=== PATIENT | male | born 1970 | race Two or more races ===

== ENCOUNTER 2020-03-06 17:12 | Emergency (ER) | payer OTHER, SELFPAY ==
--- NOTE | 2020-03-06 18:05 | ED_ITS ---
HPI - Skin/Abscess/Foreign Bdy General Chief complaint: Skin/Abscess/Foreign Body <FUAD Rubio - Last Filed: 03/06/20 19:41> Stated complaint: TOE NAIL PROBLEM <FUAD Rubio - Last Filed: 03/06/20 19:41> Time Seen by Provider: 03/06/20 18:05 <FUAD Rubio - Last Filed: 03/06/20 19:41> Source: patient <FUAD Rubio - Last Filed: 03/06/20 19:41> Mode of arrival: ambulatory <FUAD Rubio - Last Filed: 03/06/20 19:41> Limitations: no limitations <FUAD Rubio - Last Filed: 03/06/20 19:41> History of Present Illness HPI narrative: 50 y/o male presenting with bilateral great toe pain due to ingrown townails. He has had this problem before and required excision in the ED. He attempted to do this at home however the pain was too severe. He was unable to wait to go to his doctor due to severe pain. Difficulty walking and wearing shoes. Mild redness but no drainage, no fevers. <FUAD Rubio - Last Filed: 03/06/20 19:41> MD complaint: lesion <FUAD Rubio - Last Filed: 03/06/20 19:41> Onset (ago): day(s) (5) <FUAD Rubio - Last Filed: 03/06/20 19:41> Tetanus up to date: yes <FUAD Rubio - Last Filed: 03/06/20 19:41> Location: L foot and R foot <FUAD Rubio Last Filed: 03/06/20 19:41> Severity: similar to previous episodes <FUAD Rubio - Last Filed: 03/06/20 19:41> Severity scale (1-10): 8 <FUAD Rubio - Last Filed: 03/06/20 19:41> Quality: aching and sharp <FUAD Rubio Last Filed: 03/06/20 19:41> Pain Consistency: constant <FUAD Rubio - Last Filed: 03/06/20 19:41> Relieving factors: none <FUAD Rubio Last Filed: 03/06/20 19:41> Exacerbating factors: palpation <FUAD Rubio Last Filed: 03/06/20 19:41> Context: none <FUAD Rubio Last Filed: 03/06/20 19:41> Associated symptoms: denies other symptoms <FUAD Rubio Last Filed: 03/06/20 19:41> Treatments prior to arrival: attempted to drain pus at home <FUAD Rubio Last Filed: 03/06/20 19:41> Related Data Home medications: Previous Rx's Medication Instructions Recorded cephalexin [Keflex] 500 mg PO QID 7 Days #28 cap 03/06/20 <FUAD Rubio Last Filed: 03/06/20 19:41> Allergies/Adverse reactions: Allergies Allergy/AdvReac Type Severity Reaction Status Date / Time Compazine Allergy Unknown stiff Uncoded 12/03/19 00:00 muscles From COMPAZINE Allergy Unknown UNKNOWN Uncoded 02/19/20 15:25 <FUAD Rubio Last Filed: 03/06/20 19:41> Review of Systems Review of Systems: Constitutional: No Fever, No Chills ENT/Mouth: No sore throat, No Rhinorrhea, No Swallowing Difficulty Eyes: No Eye Pain, No Swelling, No Redness Cardiovascular: No Chest Pain or SOB, No Orthopnea or LE Edema Respiratory: No Cough, No Sputum, No Wheezing Gastrointestinal: No Nausea, No Vomiting, No Diarrhea, No abdominal Pain, No Hematochezia, No Melena Genitourinary: No Dysuria, No Urinary Frequency, No Hematuria Musculoskeletal: positive joint pain, No Myalgias Skin: positive Skin Lesions, No rash Neuro: No Weakness, No Numbness, No Dizziness, No Headache Psych: No Anxiety/Panic, No Depression Heme/Lymph: No Bruising, No Lymphadenopathy Endocrine: No Polyuria, No Polydipsia All other 10 point ROS are negative. <FUAD Rubio Last Filed: 03/06/20 19:41> [facility] Past Medical History Attestation statement: The following information was validated with the patient. <FUAD Rubio - Last Filed: 03/06/20 19:41> Medical History: Medical History (Updated 03/07/20 @ 00:00 by Giovana Rader) HTN (hypertension) <FUAD Rubio - Last Filed: 03/06/20 19:41> Social History Social History: Social History Alcohol intake: never Smoking Status: Current every day smoker Use of substances other than those prescribed or required for medical reasons: No Advance Directives: No Advance Directives Information Provided: Yes <FUAD Rubio - Last Filed: 03/06/20 19:41> Physical Exam Vital Signs and I&O and Narrative: Vital Signs and I&O: Vital Signs Temp 98.8 F 03/06/20 18:24 Pulse 70 03/06/20 18:24 Resp 16 03/06/20 18:24 BP 136/86 03/06/20 18:24 Pulse Ox 97 03/06/20 18:24 Intake & Output 03/06/20 03/06/20 03/07/20 06:59 18:59 06:59 Weight 95.254 kg Body Mass Index 29.2 Appearance: Alert. Oriented X3. No acute distress. Eyes: Pupils equal, round and reactive to light. Neck: Normal inspection. Neck supple. CVS: Normal heart rate and rhythm. Pulses normal. Respiratory: No respiratory distress. Abdomen: appears normal to inspection Skin: Skin warm and dry. Normal skin color. Normal skin turgor. No rashes. Extremities: bilateral great toes have areas of erythema and tenderness of the lateral nail bed. <3 sec cap refill. no drainage. Neuro: Oriented X 3. No motor deficit. No sensory deficit. <FUAD Rubio - Last Filed: 03/06/20 19:41> Vital Signs and I&O: Vital Signs Temp 98.8 F 03/06/20 18:24 Pulse 70 03/06/20 18:24 Resp 16 03/06/20 18:24 BP 136/86 03/06/20 18:24 Pulse Ox 97 03/06/20 18:24 Intake & Output 03/06/20 03/06/20 03/07/20 06:59 18:59 06:59 Weight 95.254 kg Body Mass Index 29.2 <Julio César Yin DO - Last Filed: 03/07/20 01:18> Course Course Hospital Course: bilateral ingrown toenails, see procedure note <FUAD Rubio - Last Filed: 03/06/20 19:41> Procedures Procedure Narrative Procedure Narrative: Bilateral great toes were cleansed with betadine in sterile fashion. 2% local lidocaine was injected into lateral nail beds. #11 blade was used to incise the lateral nail bed. Forceps used to excise ingrown toesnails x4, both medial and lateral areas. Cleansed with saline and peroxide. Patient tolerated well. He reports instant relief of pain and pressure. No complications. <FUAD Rubio - Last Filed: 03/06/20 19:41> MDM - Skin/Abscess/Foreign Bdy Differential Diagnosis Differential diagnosis: Likely abscess of skin or subcutaneous tissue, cellulitis, insect bites and contact dermatitis <FUAD Rubio - Last Filed: 03/06/20 19:41> Discharge Plan Discharge Clinical Impression: Ingrown right big toenail, Ingrown left big toenail <FUAD Rubio - Last Filed: 03/06/20 19:41> Patient Disposition: Home, Self-Care <FUAD Rubio - Last Filed: 03/06/20 19:41> Instructions: Ingrown Nail (ED), Partial Nail Avulsion for Ingrown Nail (DC) <UFAD Rubio - Last Filed: 03/06/20 19:41> Additional Instructions: Soak your feet in warm soapy water with Epsom salts 2-3 times per day. <FUAD Rubio - Last Filed: 03/06/20 19:41> Prescriptions: New cephalexin [Keflex] 500 mg capsule 500 mg PO QID 7 Days Qty: 28 RF: 0 <FUAD Rubio Last Filed: 03/06/20 19:41> Referrals: Zackary Murphy [Physician] - 2 days <FUAD Rubio Last Filed: 03/06/20 19:41> Interventions: ED Discharge Assessment Last Done: 03/06/20 20:12 <FUAD Rubio Last Filed: 03/06/20 19:41> Discharge Date/Time: 03/06/20 20:12 <FUAD Rubio - Last Filed: 03/06/20 19:41>
[2020-03-06 18:06] VITALS: BP 136/86; PULSE 70; TEMP 37.1
[2020-03-06 18:24] VITALS: BP 136/86; PULSE 70; RESP 16; TEMP 37.1; O2SAT 97; BMI 29.2
[2020-03-06] MEDS: cephALEXin 500 MG CAPSULE PO (18:58)
[2020-03-06] MEDS: Lidocaine HCl 2 % MPF 5 ML VIAL INFILTRATI (18:58)
== END 2020-03-06 20:12 | disposition home or self-care (01) ==
PROVIDERS: Emergency Provider Emergency Medicine; PCP Internal Medicine
DX: L60.0 Ingrowing nail (principal)
CPT/HCPCS: 11730; 11732; 99284

== ENCOUNTER 2020-08-21 10:29 | Outpatient (REF) | payer OTHER, SELFPAY ==
[2020-08-21 11:47] LABS: Glucose Urine UA NEG (NEG); Leukocyte Esterase Urine 1+ (NEG); Nitrite Urine NEG (NEG); PH 6.5 (5.0-8.0); Specific Gravity - Urine 1.025 (1.005-1.025); UACC Culture Trigger YES; Urine Blood NEG (NEG); Urine Ketones NEG (NEG); Urine Protein NEG (NEG-TRACE)
[2020-08-21 11:56] LABS: Appearance Urine HAZY; Color Urine YELLOW
[2020-08-21 12:03] LABS: Mucus Urine 3+ /LPF; RBC Urine 0 /HPF (0); WBC Urine 30-49 /HPF (0-4)
[2020-08-21 12:19] LABS: Hematocrit 41.5 % (42-52); Hemoglobin 12.8 g/dl (14.0-18.0); Mean Corpuscular HGB Conc 30.8 g/dl (31.0-36.0); Mean Corpuscular Hemoglobin 25.4 pg (27.0-33.0); Mean Corpuscular Volume 82.5 fL (80-98); Mean Platelet Volume 9.5 fL (9.4-12.4); Platelet Count 263 X10*3/uL (160-400); Red Blood Count 5.03 X10*6/uL (4.60-5.80); Red Cell Distribution Width 12.7 % (11.0-16.0); White Blood Count 8.8 X10*3/uL (4.8-10.8)
[2020-08-21 12:27] LABS: D Dimer 311 NG/ML
[2020-08-21 12:49] LABS: Alanine Aminotransferase 16 U/L (0-40); Alkaline Phosphatase 79 U/L (39-117); Anion Gap 11 (12-20); Aspartate Amino Transferase 17 U/L (5-37); Bilirubin Total 0.2 mg/dL (0.0-1.0); Blood Urea Nitrogen 13 mg/dL (9-16); Calcium 8.9 mg/dL (8.4-10.2); Carbon Dioxide 30 mmol/L (22-29); Chloride 103 mmol/L (96-108); Estimated Glomerular Filt Rate > 60; Glucose Random 92 mg/dL (60-115); Potassium 4.2 mmol/L (3.3-5.1); Sodium 140 mmol/L (135-145); Total Protein 7.4 g/dL (6.5-8.0)
[2020-08-21 12:51] LABS: Band Neutrophils Percent 7 % (3-5); Eosinophils Absolute Manual 0.3 X10*3/UL (0.0-0.8); Eosinophils Percent Manual 3 % (0-4); Lymphocytes Absolute Manual 1.9 X10*3/uL (0.6-4.8); Lymphocytes Percent Manual 22 % (20-40); Monocytes Absolute Manual 0.4 X10*3/uL (0.0-1.2); Monocytes Percent Manual 5 % (2-11); Neutrophils Absolute Manual 6.2 X10*3/uL (2.2-7.9); Neutrophils Percent Manual 63 % (45-73); Nucleated Red Blood Cells 1 /100WBC (0-0)
[2020-08-21 12:53] LABS: Platelet Estimate NORMAL (NORMAL); RBC Morphology NORMAL
[2020-08-21 12:54] LABS: Platelet Morphology Comment NORM
[2020-08-21 13:11] LABS: Prostate Specific Antigen Scr 2.17 ng/mL (<0.05-4.0)
== END 2020-08-21 10:30 | disposition home or self-care (01) ==
LOC: HO.LAB 10:29
PROVIDERS: PCP Internal Medicine; Visit Provider Internal Medicine
DX: R07.89 Other chest pain (principal); R30.0 Dysuria; I10 Essential (primary) hypertension; Z12.5 Encounter for screening for malignant neoplasm of prostate
CPT/HCPCS: 36415; 80053; 81001; 81003; 82550; 84153; 85007; 85025; 85027; 85060; 85379; 86140; 87086

== ENCOUNTER 2020-08-23 14:55 | Outpatient (REF) | payer OTHER, SELFPAY ==
--- NOTE | ~2020-08-23 | XR_ITS ---
EXAMINATION: XR CHEST CLINICAL INFORMATION: Left chest wall pain COMPARISON: Previous chest x-ray June 2019 TECHNIQUE: 2 views of the chest were obtained. FINDINGS: The cardiac and mediastinal contours are stable. There is an 10 mm nodule at the left lung base seen on the PA view. The lungs are otherwise clear. There is no pleural effusion or pneumothorax. There are mild degenerative changes of the spine. XR/XR chest 2V IMPRESSION: 10 mm nodule at the left lung base. Follow-up chest x-ray with nipple markers recommended.
== END 2020-08-23 14:56 | disposition home or self-care (01) ==
LOC: HO.XRAY 14:55
PROVIDERS: PCP Internal Medicine; Visit Provider Internal Medicine
DX: R07.89 Other chest pain (principal); I10 Essential (primary) hypertension; R30.0 Dysuria
CPT/HCPCS: 71046

== ENCOUNTER 2020-08-26 21:48 | Emergency (ER) | payer OTHER, SELFPAY ==
--- NOTE | ~2020-08-26 | US_ITS ---
EXAMINATION: US SCROTUM CLINICAL INFORMATION: Left testicular pain. COMPARISON: None TECHNIQUE: A sonogram of the scrotum was performed assessing biggs-scale appearance and color Doppler flow. Spectral Doppler analysis of the arterial and venous flow were performed in the testes bilaterally. FINDINGS: RIGHT: Right testicle measures 4.9 x 2.5 x 3.3 cm, volume 21 mL. No focal testicular parenchymal lesions are visualized. Spectral Doppler analysis of the arterial and venous flow is normal in the right testis. Right epididymal head is normal in size. A small 3 to 4 mm cyst is noted in the head of the right epididymis. No right hydrocele or varicocele is seen. Right epididymal Doppler flow is normal. LEFT: Left testicle measures 4.5 x 3.0 x 2.9 cm, volume 20 mL. No focal testicular parenchymal lesions are visualized. Spectral Doppler analysis of the arterial and venous flow is normal in the left testis. Left epididymal head is normal in size. 2 small epididymal head cysts are noted measuring about 3 to 4 mm in size. A small left hydrocele is present but no varicocele is seen. Left epididymal Doppler flow is normal. US/US scrotum doppler IMPRESSION: 1. Testes appear normal. 2. Bilateral small epididymal head cysts 3. Small left-sided hydrocele
--- NOTE | ~2020-08-26 | US_ITS ---
EXAMINATION: US SCROTUM CLINICAL INFORMATION: Left testicular pain. COMPARISON: None TECHNIQUE: A sonogram of the scrotum was performed assessing biggs-scale appearance and color Doppler flow. Spectral Doppler analysis of the arterial and venous flow were performed in the testes bilaterally. FINDINGS: RIGHT: Right testicle measures 4.9 x 2.5 x 3.3 cm, volume 21 mL. No focal testicular parenchymal lesions are visualized. Spectral Doppler analysis of the arterial and venous flow is normal in the right testis. Right epididymal head is normal in size. A small 3 to 4 mm cyst is noted in the head of the right epididymis. No right hydrocele or varicocele is seen. Right epididymal Doppler flow is normal. LEFT: Left testicle measures 4.5 x 3.0 x 2.9 cm, volume 20 mL. No focal testicular parenchymal lesions are visualized. Spectral Doppler analysis of the arterial and venous flow is normal in the left testis. Left epididymal head is normal in size. 2 small epididymal head cysts are noted measuring about 3 to 4 mm in size. A small left hydrocele is present but no varicocele is seen. Left epididymal Doppler flow is normal. US/US scrotum IMPRESSION: 1. Testes appear normal. 2. Bilateral small epididymal head cysts 3. Small left-sided hydrocele
[2020-08-26 22:19] VITALS: BP 145/84; PULSE 80; RESP 18; TEMP 36.8; O2SAT 96; BMI 29.2
--- NOTE | 2020-08-26 22:26 | ED.MALEGU ---
HPI - Male Genitourinary General Chief complaint: Urogenital-Male Stated complaint: Groin pain Time Seen by Provider: 08/26/20 22:15 Source: patient Mode of arrival: ambulatory Limitations: no limitations History of Present Illness HPI Narrative: Patient with no history of STD in the past noticed pain in the left testicle with swelling for last 3 days got worse today no trauma no history of STD no penile discharge no abdominal pain no nausea no vomiting no fever Complaint: testicle pain and testicle swelling Onset (ago): day(s) (3) Duration: constant Location: left testicle Severity: moderate Quality: stabbing Relieving factors: none Exacerbating factors: none Associated symptoms: Reports denies other symptoms Related Data Previous Rx's Medication Instructions Recorded cephalexin [Keflex] 500 mg PO QID 7 Days #28 cap 03/06/20 ibuprofen 600 mg PO Q6H PRN #20 tab 08/26/20 Allergies Allergy/AdvReac Type Severity Reaction Status Date / Time Compazine Allergy Unknown stiff Uncoded 12/03/19 00:00 muscles From COMPAZINE Allergy Unknown UNKNOWN Uncoded 02/19/20 15:25 Review of Systems Review of Systems: Yes all other systems are reviewed and are negative PMFSH Past Medical History Medical History Anxiety Depression HTN (hypertension) Methadone maintenance therapy patient Surgical History History of hernia surgery Social History Social History Alcohol intake: never Smoking Status: Never smoker Advance Directives: No Physical Exam Vital Signs: Vital Signs: Last Vital Signs Temp 98.2 F 08/26/20 22:19 Pulse 78 08/26/20 23:22 Resp 18 08/26/20 23:22 BP 145/84 H 08/26/20 22:19 Pulse Ox 96 08/26/20 22:19 Body Mass Index 29.2 Const: General: in distress Orientation/consciousness: patient oriented x3 HENMT: Head: Yes normocephalic Eyes: General: appearance normal, both eyes and all related structures Neck: Neck: Yes normal visual inspection Resp: Effort & Inspection: normal respiratory effort Auscultation: clear to auscultation bilaterally Cardio: Palpation: normal PMI Rate: regular rate Rhythm: regular rhythm Heart sounds: S1 normal heart sound present and S2 normal heart sound present Peripheral pulses: Peripheral pulses 2+ throughout GI: Inspection: Yes normal to inspection Palpation (GI): Soft to palpation and nontender Auscultation: normal bowel sounds : General: Yes no CVA tenderness Penis: normal penis Meatus: meatus normal Scrotum: testes descended bilaterally, Hydrocele present on the left and scrotal swelling Testes: epididymal tenderness on the left, testicular swelling on the left and testicular tenderness on the left Back/Spine/Pelvis: Back: no CVA tenderness Thoracic/Lumbar Spine: thoracic and lumbar spine normal to inspection Skin: General skin exam: no rashes or lesions noted Neuro: General: patient oriented x3 Extrem: General: Yes normal to inspection MDM - Male Genitourinary Differential Diagnosis Differential diagnosis: Likely epididymitis Lab Data Attestation: I reviewed the patient's lab results. Imaging Data scrotal US: Radiologist's impression: Left testicular pain. COMPARISON: None TECHNIQUE: A sonogram of the scrotum was performed assessing biggs-scale appearance and color Doppler flow. Spectral Doppler analysis of the arterial and venous flow were performed in the testes bilaterally. FINDINGS: RIGHT: Right testicle measures 4.9 x 2.5 x 3.3 cm, volume 21 mL. No focal testicular parenchymal lesions are visualized. Spectral Doppler analysis of the arterial and venous flow is normal in the right testis. Right epididymal head is normal in size. A small 3 to 4 mm cyst is noted in the head of the right epididymis. No right hydrocele or varicocele is seen. Right epididymal Doppler flow is normal. LEFT: Left testicle measures 4.5 x 3.0 x 2.9 cm, volume 20 mL. No focal testicular parenchymal lesions are visualized. Spectral Doppler analysis of the arterial and venous flow is normal in the left testis. Left epididymal head is normal in size. 2 small epididymal head cysts are noted measuring about 3 to 4 mm in size. A small left hydrocele is present but no varicocele is seen. Left epididymal Doppler flow is normal. US/US scrotum doppler IMPRESSION: 1. Testes appear normal. 2. Bilateral small epididymal head cysts 3. Small left-sided hydrocele Discharge Plan Discharge Clinical Impression: Hydrocele, left Patient Disposition: Home, Self-Care Instructions: Hydrocele (ED) Additional Instructions: Scrotal support as advised. Follow-up with urologist for further evaluation treatment Prescriptions: New ibuprofen 600 mg tablet 600 mg PO Q6H PRN (Reason: pain) Qty: 20 RF: 0 No Action cephalexin [Keflex] 500 mg capsule 500 mg PO QID 7 Days Qty: 28 RF: 0 Referrals: Ananth Thomas MD [Physician] - 1 week Interventions: ED Discharge Assessment Last Done: 08/27/20 00:08 Discharge Date/Time: 08/27/20 00:09
[2020-08-26] MEDS: Ketorolac Tromethamine 60 MG/2 ML VIAL IM (22:54)
[2020-08-26 23:22] VITALS: PULSE 78; RESP 18
--- NOTE | 2020-08-26 23:22 | PC.NURSE ---
PT REPORTS REDUCTION IN PAIN AFTER IM TORADOL. AWAITING RESULTS AND DISPO
--- NOTE | 2020-08-27 00:05 | PC.NURSE ---
DR BARR UPDATED PATIENT ON RESULTS OF ULTRASOUND AND PLAN FOR DC HOME. PT AWARE AND AGREEABLE TO PLAN. STATES THAT HE FEELS BETTER THAN UPON ARRIVAL AND PAIN IS MORE MANAGEABLE.
[2020-08-27 10:02] LABS: CT PCR NOT DETECTED (Not Detect.); NG PCR NOT DETECTED (Not Detect.)
== END 2020-08-27 00:09 | disposition home or self-care (01) ==
PROVIDERS: Emergency Provider Internal Medicine; PCP Internal Medicine
DX: N43.3 Hydrocele, unspecified (principal); N50.812 Left testicular pain; I10 Essential (primary) hypertension; F11.20 Opioid dependence, uncomplicated
CPT/HCPCS: 76870; 87491; 87591; 93975; 96374; 99284; J1885

== ENCOUNTER 2020-11-03 09:11 | Outpatient (REF) | payer OTHER, SELFPAY ==
[2020-11-03 09:52] LABS: MANUAL DIFF FLAG NO
[2020-11-03 10:02] LABS: Basophils Percent Auto 0.4 % (0-2); Eosinophils Absolute Auto 0.3 X10*3/uL (0.0-0.4); Eosinophils Percent Auto 3.9 % (0-4); Hematocrit 40.7 % (42-52); Hemoglobin 12.2 g/dl (14.0-18.0); Imm Gran Abs Auto 0.06 X10*3/uL (0.00-0.03); Imm Gran Pct Auto 0.7 % (0.0-0.4); Lymphocytes Absolute Auto 1.7 X10*3/uL (1.2-4.9); Lymphocytes Percent Auto 20.3 % (20-40); Mean Corpuscular Hemoglobin 23.1 pg (27.0-33.0); Mean Corpuscular Volume 76.9 fL (80-98); Mean Platelet Volume 10.2 fL (9.4-12.4); Monocytes Absolute Auto 0.6 X10*3/uL (0.1-1.2); Monocytes Percent Auto 7.1 % (2-11); Neutrophils Absolute Auto 5.7 X10*3/uL (2.0-8.3); Neutrophils Percent Auto 67.6 % (45-73); Platelet Count 222 X10*3/uL (160-400); Red Blood Count 5.29 X10*6/uL (4.60-5.80); Red Cell Distribution Width 15.3 % (11.0-16.0); White Blood Count 8.4 X10*3/uL (4.8-10.8)
[2020-11-03 10:08] LABS: Glucose Urine UA NEG (NEG); Leukocyte Esterase Urine TRACE (NEG); Nitrite Urine NEG (NEG); Specific Gravity - Urine 1.025 (1.005-1.025); Urine Blood TRACE (NEG); Urine Ketones NEG (NEG); Urine Protein NEG (NEG-TRACE)
[2020-11-03 10:11] LABS: Appearance Urine HAZY; Color Urine YELLOW
[2020-11-03 10:32] LABS: Alanine Aminotransferase 21 U/L (0-40); Alkaline Phosphatase 81 U/L (39-117); Anion Gap 12 (12-20); Aspartate Amino Transferase 20 U/L (5-37); Bilirubin Total 0.4 mg/dL (0.0-1.0); Blood Urea Nitrogen 16 mg/dL (9-16); C Reactive Protein 5.32 mg/dL (< or = 0.50); Calcium 9.2 mg/dL (8.4-10.2); Carbon Dioxide 29 mmol/L (22-29); Chloride 105 mmol/L (96-108); Estimated Glomerular Filt Rate > 60; Glucose Random 114 mg/dL (60-115); Potassium 4.1 mmol/L (3.3-5.1); Sodium 142 mmol/L (135-145); Total Protein 7.2 g/dL (6.5-8.0)
[2020-11-03 10:40] LABS: RBC Urine 0-2 /HPF (0); Squamous Epithelial Cell Urine TRACE /LPF
[2020-11-03 10:41] LABS: Sperm Urine NOTED
[2020-11-03 10:56] LABS: Free T4 (Free Thyroxine) 0.94 ng/dL (0.71-1.85); Thyroid Stimulating Hormone 1.04 uIU/mL (0.32-4.0)
== END 2020-11-03 09:12 | disposition home or self-care (01) ==
LOC: HO.LAB 09:11
PROVIDERS: PCP Internal Medicine; Visit Provider Internal Medicine
DX: I10 Essential (primary) hypertension (principal); R63.5 Abnormal weight gain; R60.9 Edema, unspecified
CPT/HCPCS: 36415; 80053; 81001; 81003; 84439; 84443; 85025; 86140; 87086

== ENCOUNTER 2021-01-14 16:32 | Outpatient (REF) | payer OTHER, SELFPAY ==
--- NOTE | ~2021-01-14 | XR_ITS ---
EXAMINATION: XR RIBS, LEFT CLINICAL INFORMATION: Pain. Evaluate for a fracture. COMPARISON: Chest radiograph dated 08/23/2020. TECHNIQUE: PA view of the chest with 3 views of the left ribs. FINDINGS: Lungs are clear. No consolidation, pneumothorax, or pleural effusion. The cardiomediastinal silhouette and pulmonary vasculature are normal. Possible nondisplaced fractures at the anterolateral aspect of the left 8th and 9th ribs. Correlate for focal tenderness. XR/XR ribs LT min 3V w CXR1V IMPRESSION: Possible nondisplaced fractures at the anterolateral aspect the left 8th and 9th ribs. Correlate for focal tenderness.
[2021-01-14 17:40] LABS: MANUAL DIFF FLAG NO
[2021-01-14 17:47] LABS: Basophils Percent Auto 0.5 % (0-2); Eosinophils Absolute Auto 0.4 X10*3/uL (0.0-0.4); Eosinophils Percent Auto 5.7 % (0-4); Hematocrit 36.2 % (42-52); Hemoglobin 10.9 g/dl (14.0-18.0); Imm Gran Abs Auto 0.05 X10*3/uL (0.00-0.03); Imm Gran Pct Auto 0.8 % (0.0-0.4); Lymphocytes Absolute Auto 1.5 X10*3/uL (1.2-4.9); Lymphocytes Percent Auto 23.3 % (20-40); Mean Corpuscular HGB Conc 30.1 g/dl (31.0-36.0); Mean Corpuscular Hemoglobin 22.8 pg (27.0-33.0); Mean Corpuscular Volume 75.6 fL (80-98); Mean Platelet Volume 9.9 fL (9.4-12.4); Monocytes Absolute Auto 0.6 X10*3/uL (0.1-1.2); Monocytes Percent Auto 9.2 % (2-11); Neutrophils Absolute Auto 3.8 X10*3/uL (2.0-8.3); Neutrophils Percent Auto 60.5 % (45-73); Platelet Count 255 X10*3/uL (160-400); Red Blood Count 4.79 X10*6/uL (4.60-5.80); White Blood Count 6.3 X10*3/uL (4.8-10.8)
[2021-01-14 17:56] LABS: Estimated Average Glucose 114 mg/dL; Hemoglobin A1c % 5.6 %
[2021-01-14 17:58] LABS: Anion Gap 14 (12-20); Blood Urea Nitrogen 15 mg/dL (9-16); Calcium 8.9 mg/dL (8.4-10.2); Carbon Dioxide 27 mmol/L (22-29); Chloride 105 mmol/L (96-108); Estimated Glomerular Filt Rate > 60; Glucose Random 99 mg/dL (60-115); Potassium 3.7 mmol/L (3.3-5.1); Sodium 142 mmol/L (135-145)
[2021-01-14 18:19] LABS: Thyroid Stimulating Hormone 1.13 uIU/mL (0.32-4.0)
== END 2021-01-14 16:33 | disposition home or self-care (01) ==
LOC: HO.XRAY 16:32
PROVIDERS: PCP Internal Medicine; Visit Provider Internal Medicine
DX: I10 Essential (primary) hypertension (principal); R63.5 Abnormal weight gain; R07.81 Pleurodynia
CPT/HCPCS: 36415; 71101; 80048; 83036; 84443; 85025

== ENCOUNTER 2021-08-06 09:59 | Outpatient (REF) | payer OTHER, SELFPAY ==
--- NOTE | ~2021-08-06 | XR_ITS ---
EXAMINATION: XR FOOT, RIGHT CLINICAL INFORMATION: Rule out osteoarthritis/spur. Pain. COMPARISON: Left ankle 02/13/2016. TECHNIQUE: AP, lateral, and oblique views of the right foot. FINDINGS: No focal soft tissue swelling. Mild osteoarthritis in the first MTP joint with subchondral sclerosis. No fracture. There is calcaneal spurring at the Achilles insertion and the origin of the plantar fascia. XR/XR foot RT min 3V IMPRESSION: Mild osteoarthritis of the first MTP joint. Calcaneal spurring similar prior.
[2021-08-06 10:29] LABS: MANUAL DIFF FLAG NO
[2021-08-06 11:18] LABS: Basophils Percent Auto 0.5 % (0-2); Eosinophils Absolute Auto 0.3 X10*3/uL (0.0-0.4); Eosinophils Percent Auto 4.7 % (0-4); Hematocrit 41.9 % (42.0-52.0); Hemoglobin 11.8 g/dl (14.0-18.0); Imm Gran Abs Auto 0.07 X10*3/uL (0.00-0.03); Imm Gran Pct Auto 1.1 % (0.0-0.4); Lymphocytes Absolute Auto 1.4 X10*3/uL (1.2-4.9); Lymphocytes Percent Auto 23.1 % (20-40); Mean Corpuscular HGB Conc 28.2 g/dl (31.0-36.0); Mean Corpuscular Hemoglobin 21.6 pg (27.0-33.0); Mean Corpuscular Volume 76.6 fL (80.0-98.0); Mean Platelet Volume 10.1 fL (9.4-12.4); Monocytes Absolute Auto 0.8 X10*3/uL (0.1-1.2); Monocytes Percent Auto 13.3 % (2-11); Neutrophils Absolute Auto 3.6 x10*3/uL (2.0-8.3); Neutrophils Percent Auto 57.3 % (45-73); Platelet Count 238 X10*3/uL (160-400); Red Blood Count 5.47 X10*6/uL (4.60-5.80); White Blood Count 6.2 X10*3/uL (4.8-10.8)
[2021-08-06 11:57] LABS: Alanine Aminotransferase 22 U/L (0-40); Albumin Level 4.1 g/dL (3.5-5.0); Alkaline Phosphatase 85 U/L (39-117); Anion Gap 14 (12-20); Aspartate Amino Transferase 25 U/L (5-37); Bilirubin Total 0.4 mg/dL (0.0-1.0); Blood Urea Nitrogen 23 mg/dL (9-16); C Reactive Protein 0.62 mg/dL (< or = 0.50); Calcium 9.4 mg/dL (8.4-10.2); Carbon Dioxide 28 mmol/L (22-29); Chloride 103 mmol/L (96-108); Cholesterol 185 mg/dL; Estimated Glomerular Filt Rate 58; Glucose Random 87 mg/dL (60-115); Iron 35 mcg/dL (45-160); Percent Iron Saturation 7 % (15-50); Potassium 4.6 mmol/L (3.3-5.1); Sodium 140 mmol/L (135-145); Total Iron Binding Capacity 475 mcg/dL (228-428); Total Protein 7.8 g/dL (6.5-8.0); Unsaturated Iron Binding 440 ug/dL
[2021-08-06 12:19] LABS: Free T4 (Free Thyroxine) 0.91 ng/dL (0.71-1.85); Thyroid Stimulating Hormone 1.55 uIU/mL (0.32-4.0)
[2021-08-08 08:23] LABS: Vitamin B12 385 pg/mL (200-900)
== END 2021-08-06 10:00 | disposition home or self-care (01) ==
LOC: HO.XRAY 09:59
PROVIDERS: PCP Internal Medicine; Visit Provider Internal Medicine
DX: I10 Essential (primary) hypertension (principal); R63.5 Abnormal weight gain; D64.9 Anemia, unspecified; K57.90 Diverticulosis of intestine, part unspecified, without perforation or abscess without bleeding; M79.671 Pain in right foot
CPT/HCPCS: 36415; 73630; 80053; 82465; 82607; 83540; 84439; 84443; 85025; 86140

== ENCOUNTER 2021-08-20 07:53 | Outpatient (REF) | payer OTHER, SELFPAY ==
[2021-08-20 08:30] LABS: MANUAL DIFF FLAG NO
[2021-08-20 09:03] LABS: Basophils Percent Auto 0.3 % (0-2); Eosinophils Absolute Auto 0.2 X10*3/uL (0.0-0.4); Eosinophils Percent Auto 2.6 % (0-4); Hematocrit 36.1 % (42.0-52.0); Hemoglobin 10.2 g/dl (14.0-18.0); Imm Gran Abs Auto 0.07 X10*3/uL (0.00-0.03); Imm Gran Pct Auto 0.9 % (0.0-0.4); Lymphocytes Absolute Auto 1.8 X10*3/uL (1.2-4.9); Mean Corpuscular HGB Conc 28.3 g/dl (31.0-36.0); Mean Corpuscular Hemoglobin 21.1 pg (27.0-33.0); Mean Corpuscular Volume 74.6 fL (80.0-98.0); Mean Platelet Volume 8.9 fL (9.4-12.4); Monocytes Absolute Auto 0.9 X10*3/uL (0.1-1.2); Monocytes Percent Auto 11.5 % (2-11); Neutrophils Absolute Auto 4.7 x10*3/uL (2.0-8.3); Neutrophils Percent Auto 61.7 % (45-73); Platelet Count 366 X10*3/uL (160-400); Red Blood Count 4.84 X10*6/uL (4.60-5.80); Red Cell Distribution Width 18.6 % (11.0-16.0); White Blood Count 7.6 X10*3/uL (4.8-10.8)
[2021-08-20 09:24] LABS: Alanine Aminotransferase 21 U/L (0-40); Albumin Level 3.6 g/dL (3.5-5.0); Alkaline Phosphatase 53 U/L (39-117); Anion Gap 13 (12-20); Aspartate Amino Transferase 26 U/L (5-37); Bilirubin Total 0.6 mg/dL (0.0-1.0); Blood Urea Nitrogen 16 mg/dL (9-16); C Reactive Protein 0.65 mg/dL (< or = 0.50); Calcium 9.1 mg/dL (8.4-10.2); Carbon Dioxide 27 mmol/L (22-29); Chloride 103 mmol/L (96-108); Estimated Glomerular Filt Rate > 60; Glucose Random 98 mg/dL (60-115); Sodium 139 mmol/L (135-145); Total Protein 6.8 g/dL (6.5-8.0)
[2021-08-20 09:44] LABS: Thyroid Stimulating Hormone 1.43 uIU/mL (0.32-4.0)
== END 2021-08-20 07:54 | disposition home or self-care (01) ==
LOC: HO.LAB 07:53
PROVIDERS: PCP Internal Medicine; Visit Provider Internal Medicine
DX: I10 Essential (primary) hypertension (principal); R60.0 Localized edema
CPT/HCPCS: 36415; 80053; 84443; 85025; 86140

== ENCOUNTER 2021-08-23 15:50 | Outpatient (REF) | payer OTHER, SELFPAY ==
[2021-08-23 16:35] LABS: Basophils Percent Auto 0.2 % (0-2); Eosinophils Absolute Auto 0.2 X10*3/uL (0.0-0.4); Eosinophils Percent Auto 2.3 % (0-4); Hematocrit 35.2 % (42.0-52.0); Hemoglobin 10.3 g/dl (14.0-18.0); Imm Gran Abs Auto 0.09 X10*3/uL (0.00-0.03); Lymphocytes Percent Auto 22.7 % (20-40); MANUAL DIFF FLAG SCAN; Mean Corpuscular HGB Conc 29.3 g/dl (31.0-36.0); Mean Corpuscular Hemoglobin 21.7 pg (27.0-33.0); Mean Corpuscular Volume 74.1 fL (80.0-98.0); Mean Platelet Volume 8.9 fL (9.4-12.4); Monocytes Absolute Auto 0.9 X10*3/uL (0.1-1.2); Monocytes Percent Auto 10.7 % (2-11); Neutrophils Absolute Auto 5.4 x10*3/uL (2.0-8.3); Neutrophils Percent Auto 63.1 % (45-73); Platelet Count 407 X10*3/uL (160-400); Red Blood Count 4.75 X10*6/uL (4.60-5.80); Red Cell Distribution Width 18.5 % (11.0-16.0); SCAN SMEAR FLAG 1; White Blood Count 8.6 X10*3/uL (4.8-10.8)
[2021-08-23 16:36] LABS: Immature Retic Fraction 38.1 % (2.3-13.4); Retic HGB Equivalent 22.2 pg (30.0-35.0); Reticulocyte Percent 2.3 % (0.5-1.8); Reticulocytes Absolute 0.108 X10*6/uL (0.026-0.095)
[2021-08-23 17:07] LABS: Alanine Aminotransferase 27 U/L (0-40); Albumin Level 3.8 g/dL (3.5-5.0); Alkaline Phosphatase 45 U/L (39-117); Anion Gap 14 (12-20); Aspartate Amino Transferase 37 U/L (5-37); Bilirubin Total 0.7 mg/dL (0.0-1.0); Blood Urea Nitrogen 15 mg/dL (9-16); C Reactive Protein 2.29 mg/dL (< or = 0.50); Calcium 8.7 mg/dL (8.4-10.2); Carbon Dioxide 28 mmol/L (22-29); Chloride 101 mmol/L (96-108); Estimated Glomerular Filt Rate > 60; Glucose Random 83 mg/dL (60-115); Rheumatoid Factor < 15.0 IU/mL (<15.0); Sodium 139 mmol/L (135-145)
[2021-08-23 17:19] LABS: SLIDE REVIEW VERIFIED
[2021-08-25 15:30] LABS: Anti Nuclear Antibody Screen NEGATIVE (NEGATIVE)
== END 2021-08-23 15:51 | disposition home or self-care (01) ==
LOC: HO.LAB 15:50
PROVIDERS: PCP Internal Medicine; Visit Provider Internal Medicine
DX: R60.0 Localized edema (principal); I10 Essential (primary) hypertension; D64.9 Anemia, unspecified
CPT/HCPCS: 36415; 80053; 85025; 85045; 86038; 86039; 86140; 86431

== ENCOUNTER 2021-08-30 19:55 | Emergency (ER) | payer OTHER, SELFPAY ==
--- NOTE | ~2021-08-30 | US_ITS ---
EXAMINATION: US VENOUS ULTRASOUND WITH DOPPLER LOWER EXTREMITY, BILATERAL CLINICAL INFORMATION: Edema COMPARISON: 02/13/2016 TECHNIQUE: Ultrasound of the deep veins is performed from the hip to the calf with compression sonography and color and pulse Doppler assessment. Spectral analysis with color-flow imaging is performed. FINDINGS: RIGHT: There is normal venous compression and respiratory variation and augmented flow. The visualized common femoral vein, superficial femoral vein, profunda femoral vein, popliteal vein, and the trifurcation region shows no evidence of deep venous thrombosis. Peroneal vein unable to be visualized due to edema. Posterior tibial vein is patent. There is no significant popliteal fossa cyst. LEFT: There is normal venous compression and respiratory variation and augmented flow. The visualized common femoral vein, superficial femoral vein, profunda femoral vein, popliteal vein, and the trifurcation region shows no evidence of deep venous thrombosis. Peroneal vein unable to be visualized due to edema. Posterior tibial vein is patent. There is no significant popliteal fossa cyst. If the patient's symptoms persist, followup ultrasound in 5 days 7 days might be of value to exclude proximal propagation from a non-visualized calf vein. US/US venous duplex LE BI IMPRESSION: No DVT demonstrated in the bilateral lower extremity.
--- NOTE | ~2021-08-30 | XR_ITS ---
EXAMINATION: XR CHEST CLINICAL INFORMATION: Shortness of breath. COMPARISON: Chest radiograph dated from 01/14/2021. TECHNIQUE: PA view of the chest was obtained. FINDINGS: Stable cardiomediastinal silhouette and chronic interstitial prominence. No new focal airspace opacities, pleural effusions or pneumothorax. No acute osseous abnormalities. The visualized upper abdomen is within normal limits. XR/XR chest 1V IMPRESSION: No acute cardiopulmonary findings.
--- NOTE | ~2021-08-30 | US_ITS ---
EXAMINATION: US ABDOMEN LIMITED CLINICAL INFORMATION: Elevated LFTs.. COMPARISON: CT abdomen pelvis 10/08/2019 TECHNIQUE: Real-time imaging of the right upper quadrant abdominal viscera. Color Doppler exam used. FINDINGS: PANCREAS: Obscured by bowel gas LIVER: Normal. The liver is normal in size. Right lobe liver measures 20 cm. There is an anechoic 1.2 cm cyst in the left lobe. The liver contour is normal. Parenchymal echogenicity is normal. No suspicious focal hepatic lesion. There is no intrahepatic biliary duct dilatation seen. GALLBLADDER: Normal. The gallbladder is physiologically distended without evidence of stones, sludge, polyps, wall thickening or pericholecystic fluid. COMMON BILE DUCT: Normal in caliber measuring 0.4 cm in diameter. RIGHT KIDNEY: Normal. No hydronephrosis. No renal calculi or focal parenchymal lesions. The kidney measures 13.7 cm in maximum dimension. FREE FLUID: None. US/US abdomen limited IMPRESSION: Normal ultrasound of abdomen.
[2021-08-30 20:10] VITALS: BP 148/82; PULSE 93; RESP 20; TEMP 37.2; O2SAT 96; BMI 39.6
[2021-08-30 20:23] LABS: MANUAL DIFF FLAG NO
[2021-08-30 20:25] LABS: Basophils Percent Auto 0.2 % (0-2); Eosinophils Absolute Auto 0.2 X10*3/uL (0.0-0.4); Eosinophils Percent Auto 2.5 % (0-4); Hematocrit 33.1 % (42.0-52.0); Imm Gran Abs Auto 0.15 X10*3/uL (0.00-0.03); Imm Gran Pct Auto 1.6 % (0.0-0.4); Lymphocytes Absolute Auto 1.1 X10*3/uL (1.2-4.9); Lymphocytes Percent Auto 11.9 % (20-40); Mean Corpuscular HGB Conc 30.2 g/dl (31.0-36.0); Mean Corpuscular Hemoglobin 21.5 pg (27.0-33.0); Mean Platelet Volume 8.8 fL (9.4-12.4); Monocytes Percent Auto 10.1 % (2-11); Neutrophils Absolute Auto 7.1 x10*3/uL (2.0-8.3); Neutrophils Percent Auto 73.7 % (45-73); Platelet Count 423 X10*3/uL (160-400); Red Blood Count 4.66 X10*6/uL (4.60-5.80); Red Cell Distribution Width 18.4 % (11.0-16.0); White Blood Count 9.6 X10*3/uL (4.8-10.8)
[2021-08-30 20:47] LABS: Anion Gap 14 (12-20); Blood Urea Nitrogen 16 mg/dL (9-16); Calcium 8.9 mg/dL (8.4-10.2); Carbon Dioxide 27 mmol/L (22-29); Chloride 101 mmol/L (96-108); Creatinine Clr Calc Pharmacy 98.3; Estimated Glomerular Filt Rate > 60; Glucose Random 61 mg/dL (60-115); Potassium 4.1 mmol/L (3.3-5.1); Sodium 138 mmol/L (135-145)
[2021-08-30 20:53] LABS: B Type Natriuretic Peptide 38 pg/mL (<100)
--- NOTE | 2021-08-30 22:08 | ED_ITS ---
HPI - General Adult General Chief complaint: General Medical Stated complaint: legs swollen, fingers tingle, no balance Time Seen by Provider: 08/30/21 21:51 Source: patient Mode of arrival: ambulatory Limitations: no limitations History of Present Illness HPI narrative: 51-year-old male came in for evaluation of bilateral lower extremity swelling. Bilateral leg swelling for about a month, patient was seen and evaluated by his PCP had an outpatient unrevealing blood workup. Patient also complained swelling of the tongue that causing him to bite the tongue, no chest pain, patient also been complaining of exertional chest pain that is been worsening for the past 4 weeks, the patient is a smoker for a long time quit smoking for the past 5 days. Patient use amlodipine for high blood pressure. Related Data Previous Rx's Medication Instructions Recorded cephalexin 500 mg capsule (Keflex) 500 mg PO QID 7 Days #28 cap 03/06/20 ibuprofen 600 mg tablet 600 mg PO Q6H PRN #20 tab 08/26/20 Allergies Allergy/AdvReac Type Severity Reaction Status Date / Time Compazine Allergy Unknown stiff Uncoded 08/30/21 20:10 muscles From COMPAZINE Allergy Unknown UNKNOWN Uncoded 08/30/21 20:10 Review of Systems Review of Systems: All other systems are reviewed and are negative Constitutional: Reports as per HPI and Reports no additional constitutional complaints Eyes: Reports as per HPI and Reports no additional eye complaints Reports system reviewed and no additional complaints, except as documented Cardiovascular: Reports as per HPI and Reports no additional cardiovascular complaints Respiratory: Reports as per HPI and Reports no additional respiratory complaints Gastrointestinal: Reports as per HPI and Reports no additional gastrointestinal complaints Genitourinary: Reports no additional female genitourinary complaints Musculoskeletal: Reports no additional musculoskeletal complaints Skin/Breast: Reports system reviewed and no additional complaints, except as docu Psychiatric: Reports no additional psychiatric complaints Endocrine: Reports no additional endocrine complaints Hematologic/Lymphatic: Reports no additional hematologic/lymphatic complaints Allergic/Immunologic: Reports no additional allergic/immunologic complaints Reports system reviewed and no additional complaints, except as documented and Reports Abnormal speech present [facility] Past Medical History Medical History Anxiety Depression HTN (hypertension) Methadone maintenance therapy patient Surgical History History of hernia surgery Social History Social History Alcohol intake: never Advance Directives: No Physical Exam ED Vital Signs: Vital Signs - 24 hr 08/30/21 20:10 08/30/21 23:22 Temperature 99 F Pulse Rate 93 87 Respiratory Rate 20 18 Blood Pressure 148/82 H 142/88 H Pulse Oximetry 96 98 BMI result Body Mass Index 39.6 Vital signs have been reviewed as appeared to be correct. Blood pressure normal. Heart rate normal. Respiration rate normal. Temperature normal. Oxygen saturation normal. Appearance: Alert. Oriented X3. No acute distress. Head: Normal external exam. Normocephalic. Atraumatic. No Coleman signs noted. No raccoon eyes noted Eyes: PERRLA. EOMI. Conjunctiva and sclera normal. Eyelids normal. ENT: TM's Normal. Pharynx normal. Uvula midline. Moist mucous membranes. No trismus noted. No drooling noted. No muffled voice noted. Neck: Normal inspection. Neck supple. FROM. No adenopathy. Thyroid Normal. No meningeal signs. No neck mass noted. CVS: Normal heart rate and rhythm. Heart sound normal. No murmurs noted. Pulses normal throughout. Respiratory: No respiratory distress. Painless inspiration. Breath sounds normal. No wheezes/rales/rhonchi noted. Chest nontender. No accessory muscle usage noted or decreased air movement noted. Abdomen: Soft and nontender. Bowel sounds normal in all 4 quadrants. No distention noted. No organomegaly noted. No visible injury noted. Back: No CVA tenderness. Full range of motion noted. Skin: Skin warm and dry. Normal skin color. Normal skin turgor. No rashes/lesions/lacerations noted. Extremities: Bilateral lower extremity +2 edema. Extremities exhibit normal range of motion. Extremities nontender. Neuro: Oriented X 3. Cranial nerve exam: II-XII are grossly intact No motor deficit. No sensory deficit. Reflexes normal. Course Course Course Narrative: Assessment and plan. 51-year-old male came in for evaluation of multiple symptoms including lower extremity swelling and tongue swelling and feeling dizzy, patient was seen and evaluated by his PCP showed unremarkable outpatient workup, patient is supposed to follow-up with his PCP tomorrow. Emergency room workup today including CBC, chemistry, LFTs, cardiac enzymes, EK G, chest x-ray, abdominal ultrasound, lower extremities venous Doppler wall are unremarkable except for chronic anemia. Patient declined any bleeding in the urine or from the rectum, no coughing blood, no history of unexplainable weight loss. Medical Decision Making Medical Records Medical records reviewed: Yes I reviewed the patient's medical records. Lab Data Lab results reviewed: Yes I reviewed the patient's lab results. Result diagrams: 08/30/21 20:19 08/30/21 20:19 Labs: Lab Results 08/30/21 08/30/21 08/30/21 Range/Units 20:19 20:19 20:20 WBC 9.6 (4.8-10.8) X10*3/uL RBC 4.66 (4.60-5.80) X10*6/uL Hgb 10.0 L (14.0-18.0) g/dl Hct 33.1 L (42.0-52.0) % MCV 71.0 L (80.0-98.0) fL MCH 21.5 L (27.0-33.0) pg MCHC 30.2 L (31.0-36.0) g/dl RDW 18.4 H (11.0-16.0) % Plt Count 423 H (160-400) X10*3/uL MPV 8.8 L (9.4-12.4) fL Immature Gran % (Auto) 1.6 H (0.0-0.4) % Neut % (Auto) 73.7 H (45-73) % Lymph % (Auto) 11.9 L (20-40) % [place] % (Auto) 10.1 (2-11) % Eos % (Auto) 2.5 (0-4) % Baso % (Auto) 0.2 (0-2) % Lymph # (Auto) 1.1 L (1.2-4.9) X10*3/uL [place] # (Auto) 1.0 (0.1-1.2) X10*3/uL Eos # (Auto) 0.2 (0.0-0.4) X10*3/uL Baso # (Auto) 0.0 (0.0-0.2) X10*3/uL Abs Immat Gran (auto) 0.15 H (0.00-0.03) X10*3/uL Absolute Neuts (auto) 7.1 (2.0-8.3) x10*3/uL Absolute Nucleated RBC 0.000 (0.0-0.012) X10*3/uL Nucleated RBC % (auto) 0.0 (0.0-0.2) /100WBC Sodium 138 (135-145) mmol/L Potassium 4.1 (3.3-5.1) mmol/L Chloride 101 (96-108) mmol/L Carbon Dioxide 27 (22-29) mmol/L Anion Gap 14 (12-20) BUN 16 (9-16) mg/dL Creatinine 1.23 (0.5-1.4) mg/dL Estim Creat Clear Calc 98.3 Estimated GFR > 60 Random Glucose 61 (60-115) mg/dL Calcium 8.9 (8.4-10.2) mg/dL Total Bilirubin 1.1 H (0.0-1.0) mg/dL Direct Bilirubin 0.6 H (0.0-0.5) mg/dL AST 53 H (5-37) U/L ALT 45 H (0-40) U/L Alkaline Phosphatase 42 (39-117) U/L Troponin I High Sens 18.6 (<3.5-35.0) ng/L B-Natriuretic Peptide 38 (<100) pg/mL Total Protein 7.1 (6.5-8.0) g/dL Albumin 3.8 (3.5-5.0) g/dL Discharge Plan Discharge Clinical Impression: Edema of both lower extremities Patient Disposition: Home, Self-Care Instructions: Leg Edema (ED) Prescriptions: No Action cephalexin [Keflex] 500 mg capsule 500 mg PO QID 7 Days Qty: 28 0RF ibuprofen 600 mg tablet 600 mg PO Q6H PRN (Reason: pain) Qty: 20 0RF Referrals: Skyler Fernández MD [Primary Care Provider] - 1 day
--- NOTE | 2021-08-30 22:12 | ECG_ITS ---
Test Reason : SOB Blood Pressure : / mmHG Vent. Rate : 084 BPM Atrial Rate : 084 BPM P-R Int : 148 ms QRS Dur : 106 ms QT Int : 342 ms P-R-T Axes : 059 027 026 degrees QTc Int : 404 ms Artifact in tracing Normal sinus rhythm Normal ECG When compared with ECG of 08-DEC-2015 08:43, Nonspecific T wave abnormality, worse in Inferior leads Nonspecific T wave abnormality now evident in Lateral leads Referred By: Edgardo Mcdonnell Electronically Signed By:RHONDA ARRIAZA
[2021-08-30 22:19] LABS: Alanine Aminotransferase 45 U/L (0-40); Albumin Level 3.8 g/dL (3.5-5.0); Alkaline Phosphatase 42 U/L (39-117); Aspartate Amino Transferase 53 U/L (5-37); Bilirubin Direct 0.6 mg/dL (0.0-0.5); Bilirubin Total 1.1 mg/dL (0.0-1.0); Total Protein 7.1 g/dL (6.5-8.0)
[2021-08-30 23:06] LABS: Troponin-I High Sensitivity 18.6 ng/L (<3.5-35.0)
[2021-08-30 23:22] VITALS: BP 142/88; PULSE 87; RESP 18; O2SAT 98
== END 2021-08-31 00:08 | disposition home or self-care (01) ==
PROVIDERS: Emergency Provider Emergency Medicine; PCP Internal Medicine
DX: R60.0 Localized edema (principal); R07.89 Other chest pain; Z79.899 Other long term (current) drug therapy
CPT/HCPCS: 36415; 71045; 76705; 80048; 80076; 83880; 84484; 85025; 93005; 93970; 99284

== ENCOUNTER → 2021-09-14 07:51 | Outpatient (REF) | payer OTHER, SELFPAY ==
--- NOTE | 2021-09-14 08:01 | CA_ITS ---
Transthoracic Echocardiogram Patient (Last, First, Middle): Tolu Lincoln B Gender: Male Date of : 1970 Age: 51 Procedure Date: 09/14/2021 Procedure Type: Transthoracic Echocardiogram Location: OP Height: 180.34 cm Weight: 111.13 kg BSA: 2.30 m2 Heart Rate: bpm BP: 134 / 80 mmHg Key Account Executive: Referring MD: Skyler Fernández MD Symptoms: R60.9 EDEMA, R06.02 SOB Study Quality: Fair ECG Rhythm: Sinus Conclusions: - 1. Normal LV systolic function with mild LVH with impaired relaxation filling pattern 2. At least moderately dilated left atrium 3. At least mild mitral regurgitation 4. Mildly elevated right ventricular systolic function with mildly elevated right atrial pressures 5. No gross pericardial effusion Findings Left Ventricle Normal left ventricular size and systolic function. There is mildly increased left ventricular wall thickness. The visually estimated ejection fraction is between 60-65%. Spectral Doppler is indicative of an impaired relaxation filling pattern. E/E prime ratio is between 8 and 15 consistent with indeterminate filling pressures. Right Ventricle Normal right ventricular cavity size and systolic function. Atria The left atrium is moderately dilated. The right atrium is likely dilated. Aortic Valve The aortic valve structure and function is likely normal. There is no aortic valve stenosis. There is no aortic valve regurgitation. Mitral Valve There is mild anterior and posterior mitral leaflet thickening. There is mild mitral valve regurgitation. There is no mitral valve stenosis. Pulmonic Valve The pulmonic valve was not well visualized. Tricuspid Valve Likely normal tricuspid valve structure and function. There is mild tricuspid valve regurgitation. Mildly elevated right atrial pressure. Mild pulmonary hypertension is present. Great Vessels All visible segments of the aorta are normal in size. The pulmonary artery was not well visualized. Venous The inferior vena cava is normal in size and collapses greater than 50% with inspiration. Pericardium/Pleural There is no evidence of pericardial effusion. Prior Study Comparison No prior study available for comparison. Measurements 2D Linear Measurements IVSd: 1.33 0.6-0.9/0.6-1.0 cm LVIDd: 5.12 3.9-5.3/4.2-5.9 cm LVIDd Index: 2.23 2.4-3.2/2.2-3.1 cm/m2 LVIDs: 3.17 2.0-3.6 cm LVPWd: 1.33 0.7-1.1 cm Ao Root: 3.80 2.1-3.5 cm LA Diam: 4.70 2.7-3.8/3.0-4.0 cm LAIDs Index: 2.04 1.5-2.3 cm/m2 LV Mass: 350.16 67-162/88-224 g LV Mass Index: 152.24 43-95/49-115 g/m2 LVOT Diam: 2.70 3.0+(-)1.3 cm Mitral Valve MV Pk E: 1.00 MV PK A: 1.31 MV Decel Time: 167.00 E/A: 0.80 E'Lateral: 11.00 E'Medial: 7.40 E/E' Med: 13.50 E/E' Lat: 9.10 PHT: 49.00 MVA PHT: 4.49 Decel [place]: 5.97 Aortic Valve AoV Pk Mc: 2.26 AoV Mn Mc: 1.31 AoV VTI: 0.39 AoV Pk Grad: 20.00 Aov Mn Grad: 9.00 SHON Cont.VTI: 4.32 LVOT LVOT Pk Mc: 1.48 LVOT Mn Mc: 0.97 LVOT VTI: 0.29 LVOT Pk Grad: 9.00 LVOT Mn Grad: 4.00 LVOT Diam: 2.70 LVOT Area: 5.73 Diastolic Function MV Pk E: 1.00 MV Pk A: 1.31 E/A: 0.80 E'Medial: 7.40 E/E' Med: 13.50 E' Laterial: 11.00 E/E' Lat: 9.10 Right Ventricle TAPSE (mm): 36.00 TVS' Mc: 22.00 Tricuspid Valve TR Pk Mc: 2.81 TR Pk Grad: 32.00 RA Press: 8.00 RVSP: 40.00 Great Vessels Aorta Ao Root-2D: 3.80 2.0-3.7 cm Sinus of Valsalva: 3.70 2.0-3.5 cm Ao Asc: 3.70 2.1-3.4 cm Pulmonary Valve PV Pk Mc: 1.11 Peak PV Grad: 5.00 Updated in Other Vendor System with Status of Final Bossman Chinchilla MD electronically signed on 09/14/2021 12:14:14 PM with status of Final
== END ==
LOC: HO.CARD 07:51
PROVIDERS: Visit Provider Internal Medicine
DX: R60.9 Edema, unspecified (principal); R06.02 Shortness of breath
CPT/HCPCS: 93306

== ENCOUNTER 2021-09-24 08:22 | Outpatient (REF) | payer OTHER, SELFPAY ==
[2021-09-24 09:23] LABS: Immature Retic Fraction 30.1 % (2.3-13.4); Retic HGB Equivalent 20.9 pg (30.0-35.0); Reticulocyte Percent 1.6 % (0.5-1.8); Reticulocytes Absolute 0.079 X10*6/uL (0.026-0.095)
[2021-09-24 09:30] LABS: Appearance Urine CLEAR; Color Urine YELLOW; Glucose Urine UA NEG (NEG); Leukocyte Esterase Urine NEG (NEG); Nitrite Urine NEG (NEG); Specific Gravity - Urine 1.025 (1.005-1.025); Urine Blood 1+ (NEG); Urine Ketones NEG (NEG); Urine Protein TRACE MG/DL (NEG-TRACE)
[2021-09-24 09:47] LABS: Mucus Urine 1+ /LPF; Squamous Epithelial Cell Urine 1+ /LPF
[2021-09-24 09:54] LABS: Alanine Aminotransferase 30 U/L (0-40); Albumin Level 3.9 g/dL (3.5-5.0); Alkaline Phosphatase 74 U/L (39-117); Anion Gap 13 (12-20); Aspartate Amino Transferase 38 U/L (5-37); Bilirubin Total 0.7 mg/dL (0.0-1.0); Blood Urea Nitrogen 15 mg/dL (9-16); Calcium 8.9 mg/dL (8.4-10.2); Carbon Dioxide 27 mmol/L (22-29); Chloride 102 mmol/L (96-108); Estimated Glomerular Filt Rate 56; Glucose Random 96 mg/dL (60-115); Iron 26 mcg/dL (45-160); Percent Iron Saturation 6 % (15-50); Potassium 4.5 mmol/L (3.3-5.1); Sodium 137 mmol/L (135-145); Total Iron Binding Capacity 461 mcg/dL (228-428); Total Protein 7.6 g/dL (6.5-8.0); Unsaturated Iron Binding 435 ug/dL
[2021-09-24 09:57] LABS: Amphetamine Screen Urine Not Detected (Not Detect); Barbiturates, Urine Not Detected (Not Detect); Benzodiazepines Screen Urine Not Detected (Not Detect); Cannabinoid Screen Urine POSITIVE (Not Detect); Cocaine Screen Urine POSITIVE (Not Detect); Fentanyl, urine POSITIVE (Not Detect); Opiate Screen Urine Not Detected (Not Detect); Phencyclidine Screen Urine Not Detected (Not Detect)
[2021-09-26 04:50] LABS: HIV AB/AG Nonreactive (Nonreactive); HIV Num 1 0.06 S/CO (0.00-0.99)
[2021-09-27 01:06] LABS: Lyme Abs Screen <0.90 index
== END 2021-09-24 08:23 | disposition home or self-care (01) ==
LOC: HO.LAB 08:22
PROVIDERS: PCP Internal Medicine; Visit Provider Internal Medicine
DX: Z11.4 Encounter for screening for human immunodeficiency virus [HIV] (principal); D64.9 Anemia, unspecified; I10 Essential (primary) hypertension; R53.83 Other fatigue
CPT/HCPCS: 80053; 80307; 81001; 83540; 85045; 86617; 86618; 87389

== ENCOUNTER 2021-12-15 16:56 | Outpatient (REF) | payer OTHER, SELFPAY ==
--- NOTE | ~2021-12-15 | XR_ITS ---
EXAMINATION: XR SHOULDER, RIGHT CLINICAL INFORMATION: Tendinitis. COMPARISON: None TECHNIQUE: AP external rotation, Grashey, scapular Y, and axillary views of the right shoulder. FINDINGS: The bones and soft tissues are normal. No fracture. Glenohumeral and acromioclavicular alignment is anatomic with normal joint space. No abnormal soft tissue calcifications. XR/XR shoulder RT min 2V IMPRESSION: Normal right shoulder. EXAMINATION: XR SHOULDER, LEFT CLINICAL INFORMATION: Tendinitis. COMPARISON: None TECHNIQUE: AP external rotation, Grashey, scapular Y, and axillary views of the left shoulder. FINDINGS: The bones and soft tissues are normal. No fracture. Glenohumeral and acromioclavicular alignment is anatomic with normal joint space. No abnormal soft tissue calcifications. IMPRESSION: Normal left shoulder.
--- NOTE | ~2021-12-15 | XR_ITS ---
EXAMINATION: XR SHOULDER, RIGHT CLINICAL INFORMATION: Tendinitis. COMPARISON: None TECHNIQUE: AP external rotation, Grashey, scapular Y, and axillary views of the right shoulder. FINDINGS: The bones and soft tissues are normal. No fracture. Glenohumeral and acromioclavicular alignment is anatomic with normal joint space. No abnormal soft tissue calcifications. XR/XR shoulder LT min 2V IMPRESSION: Normal right shoulder. EXAMINATION: XR SHOULDER, LEFT CLINICAL INFORMATION: Tendinitis. COMPARISON: None TECHNIQUE: AP external rotation, Grashey, scapular Y, and axillary views of the left shoulder. FINDINGS: The bones and soft tissues are normal. No fracture. Glenohumeral and acromioclavicular alignment is anatomic with normal joint space. No abnormal soft tissue calcifications. IMPRESSION: Normal left shoulder.
== END 2021-12-15 16:57 | disposition home or self-care (01) ==
LOC: HO.XRAY 16:56
PROVIDERS: PCP Internal Medicine; Visit Provider Internal Medicine
DX: M77.8 Other enthesopathies, not elsewhere classified (principal); M25.511 Pain in right shoulder; I10 Essential (primary) hypertension
CPT/HCPCS: 73030

== ENCOUNTER → 2021-12-28 15:54 | Outpatient (REF) | payer OTHER, SELFPAY | LOC: HO.SL 15:54 | PROVIDERS: PCP Internal Medicine; Visit Provider Internal Medicine | DX: Z13.89 Encounter for screening for other disorder (principal) ==

== ENCOUNTER 2024-05-12 14:00 | Outpatient (REF) | payer OTHER, SELFPAY ==
--- NOTE | ~2024-05-12 | XR_ITS ---
EXAMINATION: XR FOOT, LEFT CLINICAL INFORMATION: LEFT HEEL PAIN. RULE OUT LEFT HEEL SPUR COMPARISON: None available. TECHNIQUE: AP, lateral, and oblique views of the left foot. FINDINGS: The bones and soft tissues are normal. No fracture. Alignment is anatomic. Bowel joint space narrowing of the first metatarsal-phalangeal joint. 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 Electronically signed by: Taylor Grimes MD 05/12/2024 04:56 PM EST RP
[2024-05-12 14:18] LABS: MANUAL DIFF FLAG NO
[2024-05-12 14:29] LABS: Basophils Absolute Auto 0.1 X10*3/uL (0.0-0.2); Basophils Percent Auto 0.7 % (0-2); Eosinophils Absolute Auto 0.4 X10*3/uL (0.0-0.4); Eosinophils Percent Auto 5.8 % (0-4); Hematocrit 43.8 % (42.0-52.0); Hemoglobin 13.4 g/dl (14.0-18.0); Imm Gran Abs Auto 0.02 X10*3/uL (0.00-0.03); Imm Gran Pct Auto 0.3 % (0.0-0.4); Lymphocytes Absolute Auto 2.7 X10*3/uL (1.2-4.9); Lymphocytes Percent Auto 37.6 % (20-40); Mean Corpuscular HGB Conc 30.6 g/dl (31.0-36.0); Mean Corpuscular Hemoglobin 24.8 pg (27.0-33.0); Mean Platelet Volume 9.9 fL (9.4-12.4); Monocytes Absolute Auto 0.6 X10*3/uL (0.1-1.2); Monocytes Percent Auto 7.7 % (2-11); Neutrophils Absolute Auto 3.4 x10*3/uL (2.0-8.3); Neutrophils Percent Auto 47.9 % (45-73); Platelet Count 186 X10*3/uL (160-400); Red Blood Count 5.41 X10*6/uL (4.60-5.80); Red Cell Distribution Width 15.2 % (11.0-16.0); White Blood Count 7.2 X10*3/uL (4.8-10.8)
[2024-05-12 14:38] LABS: Estimated Average Glucose 123 mg/dL; Hemoglobin A1c % 5.9 % (<6.0); Total Hemoglobin (HGBA1C) 3420.0139 umol/L
[2024-05-12 15:08] LABS: Alanine Aminotransferase 67 U/L (0-40); Albumin Level 4.4 g/dL (3.5-5.0); Alkaline Phosphatase 81 U/L (39-117); Anion Gap 10 (12-20); Aspartate Amino Transferase 64 U/L (5-37); Bilirubin Total 0.5 mg/dL (0.0-1.0); Blood Urea Nitrogen 18 mg/dL (9-16); Calcium 9.1 mg/dL (8.4-10.2); Carbon Dioxide 30 mmol/L (22-29); Chloride 104 mmol/L (96-108); Cholesterol 179 mg/dL (<200); Estimated Glomerular Filt Rate > 60; Glucose Random 97 mg/dL (60-115); Potassium 3.7 mmol/L (3.3-5.1); Sodium 140 mmol/L (135-145); Total Protein 7.9 g/dL (6.5-8.0)
[2024-05-12 15:47] LABS: Free T4 (Free Thyroxine) 0.93 ng/dL (0.71-1.85); Thyroid Stimulating Hormone 1.16 uIU/mL (0.32-4.0)
[2024-05-14 19:53] LABS: HCV Log PCR <1.18 NOT DETECTED Log IU/mL (NOT DETECTED); HepC Viral Load <15 NOT DETECTED IU/mL (NOT DETECTED)
== END 2024-05-12 14:01 | disposition home or self-care (01) ==
LOC: HO.XRAY 14:00
PROVIDERS: PCP Internal Medicine; Visit Provider Internal Medicine
DX: I10 Essential (primary) hypertension (principal); K21.9 Gastro-esophageal reflux disease without esophagitis; Z86.19 Personal history of other infectious and parasitic diseases; E03.9 Hypothyroidism, unspecified
CPT/HCPCS: 36415; 73630; 80053; 82465; 83036; 84439; 84443; 85025; 87522